=== PATIENT | male | born 1940 | race Asian ===

== ENCOUNTER 2023-03-17 14:00 | Inpatient (IN) | payer MEDICARE, OTHER ==
[~2023-03-17] VITALS: Ht 177.8 cm; Wt 77.1 kg
[2023-03-17 14:38] LABS: BASOPHILS # (AUTO) 0.1 K/uL (0.0-0.2); BASOPHILS % (AUTO) 1.1 % (0.0-2.0); EOSINOPHILS % (AUTO) 0.4 % (0.0-6.0); HEMATOCRIT 28 % (39-51); HEMOGLOBIN 8.1 g/dL (13.5-17.5); LYMPHOCYTES # (AUTO) 1.2 K/uL (0.8-4.8); LYMPHOCYTES % (AUTO) 15.4 % (20.0-44.0); MEAN CORPUSCULAR HEMOGLOBIN 23 PG (26.0-33.0); MEAN CORPUSCULAR HGB CONC 29 g/dl (31.0-36.0); MEAN CORPUSCULAR VOLUME 80 fL (80-96); MONOCYTES # (AUTO) 0.5 K/uL (0.1-1.30); MONOCYTES % (AUTO) 5.8 % (2.0-12.0); NEUTROPHILS % (AUTO) 77.3 % (43.0-81.0); PLATELET COUNT (AUTO) 231 K/uL (150-450); RED BLOOD CELL COUNT(AUTO) 3.48 MIL/uL (4.5-6.0); RED CELL DISTRIBUTION WIDTH 19.3 % (11.5-15.0); WHITE BLOOD COUNT (AUTO) 7.8 K/uL (4.3-11.0)
[2023-03-17] MEDS ORDERED: GABA-532 GT (14:43)
[2023-03-17] MEDS ORDERED: METH-647 GT (14:43)
[2023-03-17] MEDS ORDERED: ONDA4TAB5 GT (14:43)
[2023-03-17] MEDS ORDERED: DONE10TA44 GT (14:43)
[2023-03-17] MEDS ORDERED: ATOR10TA GT (14:43)
[2023-03-17] MEDS ORDERED: FAMO20TA8 GT (14:43)
[2023-03-17] MEDS ORDERED: CARV3.122 GT (14:43)
[2023-03-17] MEDS ORDERED: MAGN400O6 GT (14:43)
[2023-03-17] MEDS ORDERED: ESCI5TAB GT (14:43)
[2023-03-17 14:50] LABS: CALCIUM, SERUM 8.5 mg/dL (8.5-10.1); CARBON DIOXIDE 37 mmol/L (21-32); CHLORIDE 105 mmol/L (98-107); CREATININE 0.6 mg/dL (0.6-1.3); GLUCOSE 179 mg/dL (74-106); POTASSIUM 4.7 mmol/L (3.5-5.1); SODIUM SERUM 142 mmol/L (136-145); UREA NITROGEN, BLOOD 28 mg/dL (7-18)
[2023-03-17 15:02] LABS: ALANINE AMINOTRANSFERASE 13 U/L (12-78); ALBUMIN 3.1 g/dL (3.4-5.0); ALKALINE PHOSPHATASE 84 U/L (46-116); ASPARTATE AMINOTRANSFERASE 13 U/L (15-37); BILIRUBIN,DIRECT 0.1 mg/dL (0.0-0.2); BILIRUBIN,TOTAL 0.3 mg/dL (0.2-1.0); NT-PRO BNP 743 pg/mL (0-125); TOTAL PROTEIN, SERUM 7.7 g/dL (6.4-8.2)
[2023-03-17] MEDS ORDERED: IV NS 0.9% 250 ML IV ONE (15:07)
[2023-03-17] MEDS ORDERED: CT SWABBABLE VALVE TRANS SET 1 EA INFUS.SET MC ONE (15:07)
[2023-03-17] MEDS ORDERED: IOHEXOL-350 100 ML VIAL IV ONE (15:07)
[2023-03-17 15:17] LABS: LACTIC ACID 0.7 mmol/L (0.4-2.0)
[2023-03-17 16:56] LABS: ABG BASE EXCESS 9.8 mmol/L; ABG OXYGEN SATURATION 96.4 % (92.0-98.5); ABG PCO2 115.8 mmHg (35.0-45.0); ABG PH 7.166 (7.350-7.450); ABG PO2 105.9 mmHg (75.0-100.0); ABG TOTAL HEMOGLOBIN 9.1 G/dL (13.5-18.0); COHb 1.5 % (0.5-1.5); MetHb 0.3 % (0.0-1.5); O2Hb 94.7 % (94.0-97.0); SITE, ABG Left Brachial; VENT MODE, BG 5 L SM
[2023-03-17 18:14] LABS: ABG BASE EXCESS 8.6 mmol/L; ABG OXYGEN SATURATION 97.5 % (92.0-98.5); ABG PCO2 97.9 mmHg (35.0-45.0); ABG PH 7.212 (7.350-7.450); ABG PO2 113.9 mmHg (75.0-100.0); COHb 1.5 % (0.5-1.5); MetHb 0.1 % (0.0-1.5); O2Hb 95.9 % (94.0-97.0); SITE, ABG Left Brachial
[2023-03-17] MEDS ORDERED: Z GUARD REMEDY 4 OZ OINT TP PRN (18:30)
[2023-03-17] MEDS ORDERED: ACETAMINOPHEN 325 MG TABLET PO PRN (18:30)
[2023-03-17] MEDS ORDERED: ONDANSETRON HCL/PF 4 MG/2 ML VIAL IVP PRN (18:30)
[2023-03-17] MEDS ORDERED: ENOXAPARIN SODIUM 40 MG/0.4 ML DISP.SYRIN SQ SCH (18:30)
[2023-03-17 20:57] LABS: ABG BASE EXCESS 6.5 mmol/L; ABG OXYGEN SATURATION 95.4 % (92.0-98.5); ABG PCO2 78.9 mmHg (35.0-45.0); ABG PH 7.264 (7.350-7.450); ABG PO2 86.7 mmHg (75.0-100.0); ABG TOTAL HEMOGLOBIN 8.7 G/dL (13.5-18.0); COHb 1.3 % (0.5-1.5); MetHb 0.3 % (0.0-1.5); O2Hb 93.9 % (94.0-97.0); SITE, ABG Right Radial
[2023-03-17] MEDS ORDERED: METHOCARBAMOL (500MG) 500 MG TABLET GT SCH (21:00)
[2023-03-17] MEDS: IV 1/2NS 1000 ML 1,000 ML IV PRN (22:22)
[2023-03-18] VITALS (7 sets, daily range): O2SAT 98–100
[2023-03-18 05:18] LABS: BASOPHILS % (AUTO) 0.5 % (0.0-2.0); EOSINOPHILS % (AUTO) 0.2 % (0.0-6.0); HEMATOCRIT 26 % (39-51); HEMOGLOBIN 7.4 g/dL (13.5-17.5); LYMPHOCYTES # (AUTO) 0.9 K/uL (0.8-4.8); LYMPHOCYTES % (AUTO) 14.4 % (20.0-44.0); MEAN CORPUSCULAR HEMOGLOBIN 23 PG (26.0-33.0); MEAN CORPUSCULAR HGB CONC 28 g/dl (31.0-36.0); MEAN CORPUSCULAR VOLUME 81 fL (80-96); MONOCYTES # (AUTO) 0.6 K/uL (0.1-1.30); MONOCYTES % (AUTO) 10.5 % (2.0-12.0); NEUTROPHILS # (AUTO) 4.6 K/uL (1.8-8.9); NEUTROPHILS % (AUTO) 74.4 % (43.0-81.0); PLATELET COUNT (AUTO) 192 K/uL (150-450); RED BLOOD CELL COUNT(AUTO) 3.25 MIL/uL (4.5-6.0); RED CELL DISTRIBUTION WIDTH 19.2 % (11.5-15.0); WHITE BLOOD COUNT (AUTO) 6.1 K/uL (4.3-11.0)
[2023-03-18 05:25] LABS: ALBUMIN 2.8 g/dL (3.4-5.0); BILIRUBIN,TOTAL 0.3 mg/dL (0.2-1.0); CALCIUM, SERUM 8.5 mg/dL (8.5-10.1); CREATININE 0.6 mg/dL (0.6-1.3); POTASSIUM 4.8 mmol/L (3.5-5.1); TOTAL PROTEIN, SERUM 6.9 g/dL (6.4-8.2)
[2023-03-18 06:05] LABS: ABG OXYGEN SATURATION 97.5 % (92.0-98.5); ABG PCO2 70.8 mmHg (35.0-45.0); ABG PH 7.306 (7.350-7.450); ABG PO2 107.9 mmHg (75.0-100.0); ABG TOTAL HEMOGLOBIN 8.2 G/dL (13.5-18.0); COHb 1.1 % (0.5-1.5); MetHb 0.3 % (0.0-1.5); O2Hb 96.1 % (94.0-97.0); SITE, ABG Right Radial
[2023-03-18] MEDS ORDERED: ACETAMINOPHEN 650 MG/20.3 ML UDC GT PRN (08:00)
[2023-03-18] MEDS: FAMOTIDINE (20 MG) 20 MG TABLET GT SCH ×2 (09:00→17:44)
[2023-03-18] MEDS ORDERED: ENOXAPARIN SODIUM 40 MG/0.4 ML DISP.SYRIN SQ SCH (09:30)
[2023-03-18] MEDS ORDERED: methylPREDNISolone SOD SUCC 40 MG/ML VIAL ONE ×2 (10:15→17:42)
[2023-03-18] MEDS ORDERED: ESCITALOPRAM OXALATE (10 MG) 10 MG TABLET ONE (10:15)
[2023-03-18] MEDS ORDERED: FAMOTIDINE (20 MG) 20 MG TABLET ONE ×2 (10:16→17:43)
[2023-03-18] MEDS ORDERED: CARVEDILOL 3.125 MG TABLET ONE ×2 (10:16→17:43)
[2023-03-18] MEDS ORDERED: ATORVASTATIN 10 MG TABLET ONE (10:16)
[2023-03-18] MEDS ORDERED: LEVOFLOXACIN 500 MG /D5W 100ML 100 ML IV ONE (10:19)
[2023-03-18] MEDS: CARVEDILOL 3.125 MG TABLET GT SCH ×2 (10:20→17:44)
[2023-03-18] MEDS: LEVOFLOXACIN 500 MG /D5W 100ML 100 ML IV SCH (10:20)
[2023-03-18] MEDS: ESCITALOPRAM OXALATE (10 MG) 10 MG TABLET GT SCH (10:22)
[2023-03-18] MEDS: ATORVASTATIN 10 MG TABLET GT SCH (10:23)
[2023-03-18] MEDS: methylPREDNISolone SOD SUCC 125 MG/2ML VIAL IV SCH ×2 (10:24→17:45)
[2023-03-18] MEDS: IPRATROPIUM NEB FS 0.5 MG/2.5 ML AMPUL.NEB NEB SCH ×4 (11:30→23:49)
[2023-03-18 12:19] LABS: ABG BASE EXCESS 8.5 mmol/L; ABG OXYGEN SATURATION 98.5 % (92.0-98.5); ABG PCO2 44.7 mmHg (35.0-45.0); ABG PH 7.483 (7.350-7.450); COHb 1.7 % (0.5-1.5); MetHb 0.3 % (0.0-1.5); O2Hb 96.5 % (94.0-97.0); SITE, ABG Right Radial; VENT MODE, BG 1L NC
[2023-03-18] MEDS ORDERED: IPRATROPIUM NEB FS 0.5 MG/2.5 ML AMPUL.NEB ONE ×4 (13:01→23:43)
[2023-03-18] MEDS: IV 1/2NS 1000 ML 1,000 ML IV PRN (14:11)
[2023-03-18] MEDS ORDERED: ENOXAPARIN SODIUM 40 MG/0.4 ML DISP.SYRIN SQ ONE (18:12)
[2023-03-18] MEDS: ENOXAPARIN SODIUM 40 MG/0.4 ML DISP.SYRIN SQ SCH (18:38)
[2023-03-19] VITALS: O2SAT 100
[2023-03-19] MEDS ORDERED: IPRATROPIUM NEB FS 0.5 MG/2.5 ML AMPUL.NEB ONE (04:23)
[2023-03-19] MEDS: IPRATROPIUM NEB FS 0.5 MG/2.5 ML AMPUL.NEB NEB SCH ×6 (04:25→23:48)
[2023-03-19] MEDS: IV 1/2NS 1000 ML 1,000 ML IV PRN ×2 (04:32→18:00)
[2023-03-19 09:00] LABS: ABG BASE EXCESS 4.8 mmol/L; ABG OXYGEN SATURATION 99.2 % (92.0-98.5); ABG PCO2 42.1 mmHg (35.0-45.0); ABG PH 7.458 (7.350-7.450); ABG PO2 142.2 mmHg (75.0-100.0); ABG TOTAL HEMOGLOBIN 7.8 G/dL (13.5-18.0); COHb 1.8 % (0.5-1.5); MetHb 0.3 % (0.0-1.5); O2Hb 97.1 % (94.0-97.0); SITE, ABG Right Radial; VENT MODE, BG N/C 2LPM
[2023-03-19] MEDS: ATORVASTATIN 10 MG TABLET GT SCH (09:00)
[2023-03-19] MEDS ORDERED: FAMOTIDINE (20 MG) 20 MG TABLET ONE (10:48)
[2023-03-19] MEDS ORDERED: ATORVASTATIN 10 MG TABLET ONE (10:48)
[2023-03-19] MEDS: FAMOTIDINE (20 MG) 20 MG TABLET GT SCH ×2 (10:57→16:55)
[2023-03-19] MEDS: LEVOFLOXACIN 500 MG /D5W 100ML 100 ML IV SCH (11:00)
[2023-03-19] MEDS: CARVEDILOL 3.125 MG TABLET GT SCH ×2 (11:15→16:55)
[2023-03-19] MEDS: ESCITALOPRAM OXALATE (10 MG) 10 MG TABLET GT SCH (11:15)
[2023-03-19] MEDS: methylPREDNISolone SOD SUCC 125 MG/2ML VIAL IV SCH ×2 (13:25→16:41)
[2023-03-19 16:00] VITALS: BP 130/70; TEMP 97.6; O2SAT 100
[2023-03-19] MEDS: ENOXAPARIN SODIUM 40 MG/0.4 ML DISP.SYRIN SQ SCH (17:39)
[2023-03-19 20:00] VITALS: BP 131/65; TEMP 98.4; O2SAT 96
[2023-03-20] VITALS (8 sets, daily range): BP systolic 121–147; BP diastolic 60–76; TEMP 97.5–98.8; O2SAT 95–100
[2023-03-20] MEDS: IPRATROPIUM NEB FS 0.5 MG/2.5 ML AMPUL.NEB NEB SCH ×5 (03:56→22:46)
[2023-03-20] MEDS: IV 1/2NS 1000 ML 1,000 ML IV PRN ×2 (05:39→16:58)
[2023-03-20 05:41] LABS: HEMATOCRIT 24 % (39-51); HEMOGLOBIN 7.2 g/dL (13.5-17.5); LYMPHOCYTES # (AUTO) 0.5 K/uL (0.8-4.8); LYMPHOCYTES % (AUTO) 8.2 % (20.0-44.0); MEAN CORPUSCULAR HEMOGLOBIN 23 PG (26.0-33.0); MEAN CORPUSCULAR HGB CONC 30 g/dl (31.0-36.0); MEAN CORPUSCULAR VOLUME 78 fL (80-96); MONOCYTES # (AUTO) 0.4 K/uL (0.1-1.30); MONOCYTES % (AUTO) 6.3 % (2.0-12.0); NEUTROPHILS # (AUTO) 4.9 K/uL (1.8-8.9); NEUTROPHILS % (AUTO) 85.5 % (43.0-81.0); PLATELET COUNT (AUTO) 179 K/uL (150-450); RED BLOOD CELL COUNT(AUTO) 3.09 MIL/uL (4.5-6.0); RED CELL DISTRIBUTION WIDTH 19.4 % (11.5-15.0); WHITE BLOOD COUNT (AUTO) 5.7 K/uL (4.3-11.0)
[2023-03-20 06:03] LABS: CALCIUM, SERUM 8.1 mg/dL (8.5-10.1); CARBON DIOXIDE 29 mmol/L (21-32); CHLORIDE 103 mmol/L (98-107); CREATININE 0.7 mg/dL (0.6-1.3); GLUCOSE 127 mg/dL (74-106); MAGNESIUM 2.6 mg/dL (1.8-2.4); PHOSPHORUS 3.7 mg/dL (2.5-4.9); POTASSIUM 4.3 mmol/L (3.5-5.1); SODIUM SERUM 140 mmol/L (136-145); UREA NITROGEN, BLOOD 28 mg/dL (7-18)
[2023-03-20] MEDS: methylPREDNISolone SOD SUCC 125 MG/2ML VIAL IV SCH ×2 (08:19→16:44)
[2023-03-20] MEDS: CARVEDILOL 3.125 MG TABLET GT SCH ×2 (08:21→16:46)
[2023-03-20] MEDS: FAMOTIDINE (20 MG) 20 MG TABLET GT SCH ×2 (08:22→16:44)
[2023-03-20] MEDS: ESCITALOPRAM OXALATE (10 MG) 10 MG TABLET GT SCH (08:22)
[2023-03-20] MEDS: ATORVASTATIN 10 MG TABLET GT SCH (08:22)
[2023-03-20] MEDS: LEVOFLOXACIN 500 MG /D5W 100ML 100 ML IV SCH (09:41)
[2023-03-20 10:29] LABS: IRON, SERUM 11 ug/dl (50-175); TOTAL IRON BINDING CAPACITY 309 ug/dl (250-450)
[2023-03-20] MEDS ORDERED: SOD FERRIC GLUC 125 MG in IV NS 0.9% 100 ML IV SCH (14:00)
[2023-03-20] MEDS ORDERED: JEVITY 1.2 CAL 1,000 ML BOTTLE GT PRN (17:00)
[2023-03-20] MEDS: ENOXAPARIN SODIUM 40 MG/0.4 ML DISP.SYRIN SQ SCH (17:03)
[2023-03-21] VITALS (10 sets, daily range): BP systolic 149–154; BP diastolic 65–74; TEMP 97.1–98.2; O2SAT 98–100
[2023-03-21] MEDS: IPRATROPIUM NEB FS 0.5 MG/2.5 ML AMPUL.NEB NEB SCH ×4 (03:47→14:41)
[2023-03-21] MEDS: FAMOTIDINE (20 MG) 20 MG TABLET GT SCH (09:37)
[2023-03-21] MEDS: CARVEDILOL 3.125 MG TABLET GT SCH (09:37)
[2023-03-21] MEDS: ESCITALOPRAM OXALATE (10 MG) 10 MG TABLET GT SCH (09:37)
[2023-03-21] MEDS: ATORVASTATIN 10 MG TABLET GT SCH (09:37)
[2023-03-21] MEDS: methylPREDNISolone SOD SUCC 125 MG/2ML VIAL IV SCH (09:38)
[2023-03-21] MEDS: LEVOFLOXACIN 500 MG /D5W 100ML 100 ML IV SCH (10:53)
[2023-03-21] MEDS: IV 1/2NS 1000 ML 1,000 ML IV PRN (11:00)
[2023-03-21] MEDS ORDERED: LEVO500T90 PO (11:17)
== END 2023-03-21 15:04 | disposition home health service (06) | DRG 189 ==
LOC: ER 14:03 → TRANSITION 03-18 05:49 → TELE1 03-19 10:41
PROVIDERS: ADMIT Internal Medicine; ATTEND Internal Medicine
PROC: 5A09457 Assistance with Respiratory Ventilation, 24-96 Consecutive Hours, Continuous Positive Airway Pressure (ICD-10-PCS; principal; 2023-03-18)
PROC: 0D20XUZ Change Feeding Device in Upper Intestinal Tract, External Approach (ICD-10-PCS; 2023-03-20)
DX: J96.22 Acute and chronic respiratory failure with hypercapnia (principal); G93.41 Metabolic encephalopathy; I50.32 Chronic diastolic (congestive) heart failure; G93.1 Anoxic brain damage, not elsewhere classified; N17.9 Acute kidney failure, unspecified; E87.29 Other acidosis; J96.21 Acute and chronic respiratory failure with hypoxia; I11.0 Hypertensive heart disease with heart failure; Z93.1 Gastrostomy status; Z20.822 Contact with and (suspected) exposure to COVID-19; Z79.899 Other long term (current) drug therapy; R13.10 Dysphagia, unspecified; V89.2XXS Person injured in unspecified motor-vehicle accident, traffic, sequela; Z86.73 Personal history of transient ischemic attack (TIA), and cerebral infarction without residual deficits; D63.8 Anemia in other chronic diseases classified elsewhere; E11.9 Type 2 diabetes mellitus without complications; E78.5 Hyperlipidemia, unspecified; E86.0 Dehydration; J44.9 Chronic obstructive pulmonary disease, unspecified; F03.90 Unspecified dementia, unspecified severity, without behavioral disturbance, psychotic disturbance, mood disturbance, and anxiety
CPT/HCPCS: 36415; 36600; 71045-TC; 80048-TC; 80053-TC; 80076-TC; 82803-TC; 83540-TC; 83605-TC; 83735-TC; 83880; 84100-TC; 84484-TC; 85025-TC; 87040-TC; 94799-TC; A4223; A4349; C9803; G0378; J1650; J1956; J2405; J2916; J2920; J2930; J3490; J7030; J7050; Q9967